=== PATIENT | male | born 1985 | race Caucasian/White ===

== ENCOUNTER 2025-02-16 11:31 | Outpatient (AMB) | payer OTHER, SELFPAY ==
[2025-02-16 11:34] VITALS: BP 122/74; PULSE 90; TEMP 36.8; O2SAT 98; BMI 38.1
--- NOTE | 2025-02-16 11:34 | AM.OFFWIN_ITS ---
Intake Vital Signs 02/16/25 11:34 Height 5 ft 9 in Weight 258 lb BMI 38.1 BP 122/74 Blood Pressure Location Rt brachial Position Sitting Pulse 90 Pulse Source Pulse Oximeter Temp 98.2 F Temp Source Oral Pulse Oximetry (%) 98 Oxygen Delivery Method Room Air Intake Visit Reasons: [employer] pt has cut on left hand Allergies No Known Allergies Allergy (Verified 02/16/25 11:35) Do you need a note to return to daycare/school/sports/work: No HPI HPI Comments History of Present Illness Details History of Present Illness - The patient is a 39-year-old male pres enting with a left finger injury sustained at work. - The injury occurred when the patient a ttempted to lift a heavy object, resulting in the finger being compressed between two surfaces. - The patient reports swelling of the fi nger but denies any numbness or significant pain beyond a 5/10 on the pain scale. - No prior history of similar injuries o r chronic conditions affecting the hand. - He is unaware of his tetanus status. - He denies arm pain, wrist pain, numbne ss or tingling. - He is right handed. Physical Exam General: Cooperative, healthy appearing, comfortable, no acute distress and well developed Orientation: Patient oriented x3 Limitations: No limitations Respiratory: Normal respiratory effort and able to speak in complete sentences. Clear to auscultation bilaterally Cardiovascular: Regular rate and rhythm. Normal S1 and S2. Pulses are 2+ on the UE. Cap refill is less than 3 secs. Skin: No rashes or lesions noted. Pale and clammy. Laceration noted to the left 3rd digit, 5cm in length with active bleeding. Bruise noted on the 4th finger pad distally. Neuro: Sensation is intact. Extremities: FROM of the digits on the left hand. FROM of the left wrist and elbow. Patient was informed and verbally consented to the use of an ambient scribe for clinic note documentation during this visit. Review of Systems Const All systems reviewed & are unremarkable except as noted in HPI and below Physical Exam Vital Signs: Last Vital Signs Temp 98.2 F 02/16/25 11:34 Pulse 90 02/16/25 11:34 BP 122/74 02/16/25 11:34 Pulse Ox 98 02/16/25 11:34 Oxygen Delivery Method Room Air 02/16/25 11:34 BMI result Body Mass Index 38.1 Office Procedures AMB Laceration Repair Details: left 3rd finger laceration Laceration repair performed by: Carolyn Lundberg Explained risks and benefits to parent: Yes Location: left 3rd digit Length: 5cm Sedation: No Anesthesia: 2% lidocaine Irrigation: saline Preparation: betadine Wound exploration: fb-foreign body (no FB noted) Deep closure: No Skin closure: nylon Technique: Closed wound with #10 SIS 5-0 ethilon sutures Topical treatment: triple antibiotic Tetanus toxoid ordered: Yes Patient tolerated procedure: with [place]: [place] [id number] Repair 2.6-7.5cm Procedure code (CPT) selection complete Office Meds lidocaine HCl 20 mg/mL (2 %) injection solution Performing Provider: Carolyn Lundberg PA-C Performing Location: [facility] [place] [facility] Administered by: Carolyn Lundberg PA-C on 02/16/25 13:12 Dose Route Admin Location Dispensed Lot Number Expiration Date [facility] Cut Off Saw Operator Pipe Blanks 3 mL Infiltration 3 mL [id number] 10/03/26 29389-268-58 Miproto Total Dispensed Waste 3 mL 0 % Immunizations Boostrix Tdap 2.5 Lf unit-8 mcg-5 Lf/0.5 mL intramuscular syringe Performing Provider: Carolyn Lundberg PA-C Performing Location: [facility] [place] [facility] Administered by: Declan Wilson CMA on 02/16/25 13:20 Dose Route Admin Location Dispensed Lot Number Expiration Date [facility] Cut Off Saw Operator Pipe Blanks 0.5 mL IM Left Deltoid 0.5 mL [id number] 01/02/27 32466-311-19 [facility] Total Dispensed Waste 0.5 mL 0 % 2 VIS Given Date VIS Provided VIS Publication Date 02/16/25 Single Vaccine 20 Eligibility Eligibility Date Funding Source Not [facility] Eligible 02/16/25 Private Assessment & Plan Assessment & Plan (1) Laceration of finger of left hand: Code(s): S61.219A - Laceration without foreign body of unspecified finger without damage to nail, initial encounter Qualifiers: Damage to nail status: without damage Encounter type: initial encounter Finger: middle finger Foreign body presence: without foreign body Qualified Code(s): S61.213A - Laceration without foreign body of left middle finger without damage to nail, initial encounter Plan Most likely laceration to the left 3rd finger plan - keep area clean and dry - wear the finger splint daily - tylenol or motrin as needed for pain or fever - Have the sutures removed in 7-10 days - watch for signs of infection such as redness, swelling, discharge, increased pain, etc. and either f/u at the walk in or go to the ER - will give him a Tdap in the office today - follow up with PCP Orders: Orders AMB Laceration Repair Today S61.219A - Laceration without foreign body of unspecified finger without damage to nail, initial encounter TDaP Immunization Today Z23 - Encounter for immunization Coding Level of Care Code Est Pt Level 4 (81117) Diagnoses Laceration of left middle finger without foreign body without damage to nail, initial encounter S61.213A Damage to nail status: without damage Encounter type: initial encounter Finger: middle finger Foreign body presence: without foreign body CPT Codes Office Procedure - Laceration Repair 2: [id number] Repair 2.6-7.5cm ([id number])
== END 2025-02-16 13:37 | disposition home or self-care (01) ==
PROVIDERS: Visit Provider Physician Assistant Medical
DX: S61.213A Laceration without foreign body of left middle finger without damage to nail, initial encounter (principal); Z04.2 Encounter for examination and observation following work accident

== ENCOUNTER → 2025-02-16 11:31 | Outpatient (BNVA) | payer OTHER, SELFPAY | PROVIDERS: Visit Provider Physician Assistant Medical | DX: S61.213A Laceration without foreign body of left middle finger without damage to nail, initial encounter (principal); W23.0XXA Caught, crushed, jammed, or pinched between moving objects, initial encounter; Y93.9 Activity, unspecified; Y92.9 Unspecified place or not applicable; Y99.0 Civilian activity done for income or pay; Z23 Encounter for immunization | CPT/HCPCS: 12002; 90471; 90715; 99212; J2003 ==